=== PATIENT | male | born 1985 | race Caucasian/White ===

== ENCOUNTER 2016-11-21 07:29 | Emergency (ER) | payer OTHER ==
[2016-11-21 07:40] VITALS: BP 137/82; PULSE 54; TEMP 97.7; BMI 30.5
[2016-11-21] MEDS ORDERED: METOCLOPRAMIDE HCL INJECTION 10 MG/2 ML VIAL IVPB ONE (08:51)
[2016-11-21] MEDS ORDERED: SODIUM CHLORIDE 1,000 ML IV STA (08:51)
[2016-11-21] MEDS ORDERED: KETOROLAC TROMETHAMINE 30 MG/1 ML VIAL IVPUSH ONE (08:51)
[2016-11-21] MEDS ORDERED: PANTOPRAZOLE SODIUM 40 MG in SODIUM CHLORIDE 100 ML IVPB ONE (08:53)
[2016-11-21] MEDS ORDERED: PANTOPRAZOLE SODIUM 100 ML IVPB ONE (09:03)
[2016-11-21] MEDS ORDERED: METOCLOPRAMIDE HCL INJECTION 10 MG/2 ML VIAL ONE (09:03)
[2016-11-21] MEDS ORDERED: KETOROLAC TROMETHAMINE 30 MG/1 ML VIAL ONE (09:04)
--- NOTE | 2016-11-21 09:20 | PDOC ---
History of Present Illness - General Chief Complaint: Pain, Acute Stated Complaint: VOMITING, HEADACHE Time Seen by Provider: 11/21/16 08:42 History Source: Patient Exam Limitations: No Limitations - History of Present Illness Initial Comments: 11/21/16 09:00 31-year-old male with history of asthma and hypothyroidism presents to the ED with complaints of a sudden onset of worsening left temporal occipital throbbing pressure since yesterday afternoon. Patient states took Tylenol yesterday with moderate effect but then at 2 AM symptoms returned but more severe. Patient states has mild nausea with mild epigastric cramping/burning. Patient denies fever, chills, recent dental work, ear pain, throat pain, neck stiffness, recent travel, recent illness, change in appetite, history of drug and alcohol use. Patient denies recent fall, head injury, or history of headaches. Patient denies any visual changes or dizziness. Timing/Duration: reports: increasing Severity: Yes: moderate Associated Symptoms: reports: denies symptoms Past History - Travel Traveled outside of the country in the last 30 days: No Close contact w/someone who was outside of country & ill: No - Past Medical History Allergies/Adverse Reactions: Allergies Allergy/AdvReac Type Severity Reaction Status Date / Time aspirin Allergy Hives Verified 11/21/16 07:32 Home Medications: Ambulatory Orders Levothyroxine [Synthroid -] 112 mcg PO DAILY 07/05/13 Omeprazole [Prilosec (RX)] 20 mg PO BID #30 capsule 07/05/13 Ondansetron [Zofran -] 4 mg PO BID PRN #14 tablet 07/05/13 Asthma: Yes Thyroid Disease: Yes (hypo) - Psycho/Social/Smoking Cessation Hx Anxiety: No Suicidal Ideation: No Smoking Status: No Smoking History: Never smoked Number of Cigarettes Smoked Daily: 0 Hx Alcohol Use: Yes (OCCASIONALLY) Substance Use Type: Alcohol Patient Lives Alone: No Lives with/in: spouse/SO Review of Systems - Review of Systems Able to Perform ROS?: No Is the patient limited Mauritian proficient: No Constitutional: No: Symptoms Reported HEENTM: No: Symptoms Reported Respiratory: No: Symptoms reported Cardiac (ROS): No: Symptoms Reported ABD/GI: Yes: Nausea, Indigestion, Abdominal cramping : No: Symptoms Reported Musculoskeletal: No: Symptoms Reported Neurological: Yes: Headache. No: Tingling, Weakness, Dizziness Hematologic/Lymphatic: No: Symptoms Reported *Physical Exam - Vital Signs Last Vital Signs Temp Pulse Resp BP Pulse Ox 97.7 F 54 L 19 137/82 98 11/21/16 07:33 11/21/16 07:33 11/21/16 07:33 11/21/16 07:33 11/21/16 07:33 - Physical Exam General Appearance: Yes: Nourished, Appropriately Dressed. No: Apparent Distress HEENT: positive: EOMI, SAMANTHA. negative: Pale Conjunctivae Neck: positive: Normal Thyroid, Supple. negative: Tender, Decreased range of motion Respiratory/Chest: positive: Lungs Clear, Normal Breath Sounds. negative: Respiratory Distress, Accessory Muscle Use Cardiovascular: positive: Regular Rhythm, Regular Rate. negative: Murmur Gastrointestinal/Abdominal: positive: Normal Bowel Sounds, Soft, Tenderness ( epigastric. no right upper quadrant tenderness). negative: Distended, Guarding , Rebound Integumentary: positive: Normal Color, Warm, Moist Neurologic: positive: Motor Strength 5/5 (ambulatory) ED Treatment Course - LABORATORY CBC & Chemistry Diagram: 11/21/16 09:15 11/21/16 09:15 - RADIOLOGY Radiology Studies Ordered: Category Date Time Status HEAD CT WITHOUT CONTRAST [CT] Stat CT Scan 11/21/16 08:51 Ordered Medical Decision Making - Medical Decision Making 11/21/16 09:00 Patient complains of headache associated with nausea and epigastric pain. Patient then had no neuro focal deficits and due to patient's history of present illness patient will have blood work , IV Reglan, IV fluids, Toradol, and CAT scan ordered. Patient also ordered for Protonix. 11/21/16 10:52 Laboratory Tests 11/21/16 11/21/16 09:15 09:15 WBC 7.6 Hgb 16.1 Hct 46.3 Plt Count 155 Sodium 139 Potassium 4.1 Chloride 108 H Carbon Dioxide 24 Anion Gap 7 L BUN 10 Creat Clearance w eGFR > 60 Random Glucose 103 Calcium 8.8 AST 20 D ALT 51 D Albumin 3.[address] shows no evidence of mass, hemorrhage or acute vascular territory infarction or acute changes in the brain identified. 11/21/16 11:09 Patient states feeling better with no complaints presently including epigastric discomfort. Patient will be discharged home with recommendations to take Pepcid and to take Tylenol or Motrin for headache. Patient also be given a referral to a neurologist and states can follow-up with his 's bonus clerk Dr. Underwood. *DC/Admit/Observation/Transfer Diagnosis at time of Disposition: Epigastric pain Headache Qualifiers: Headache type: unspecified Headache chronicity pattern: acute headache Intractability: not intractable Qualified Code(s): R51 - Headache - Discharge Dispostion Disposition: HOME Condition at time of disposition: Improved - Referrals Referrals: Monica Hernadez MD [Primary Care Provider] - Fernando Deshpande MD [Staff Physician] - Cristobal Underwood MD [Staff Physician] - - Patient Instructions Printed Discharge Instructions: DI for Headache, DI for Gastroesophageal Reflux Disease (GERD) Additional Instructions: I recommend at this point taking Motrin and Tylenol gelcaps for headache control. Patient plenty of fluids and although you have not been diagnosed with GERD, I have enclosed information regards to GERD I do recommend taking Pepcid over-the- counter daily and follow-up with referred bonus clerk.
[2016-11-21 09:31] LABS: BASOPHIL 0.4 % (0-2.0); EOSINOPHIL 1.3 % (0-4.5); MCH 29.3 pg (25.7-33.7); MCHC 34.9 g/dl (32.0-35.9); MEAN CELL VOLUME 84.1 fl (80-96); MEAN PLT VOLUME 8.5 fl (7.5-11.1); NEUTROPHILS 79.1 % (42.8-82.8); PLATELET COUNT 155 K/MM3 (134-434); RDW 14.2 % (11.9-15.9); WHITE BLOOD COUNT 7.6 K/mm3 (4.0-10.0)
[2016-11-21 09:45] LABS: ALBUMIN 3.8 g/dl (3.4-5.0); ANION GAP 7 (8-16); CALCIUM 8.8 mg/dL (8.5-10.1); CO2 24 mmol/L (21-32); CREATININE 0.9 mg/dL (0.7-1.3); GLUCOSE,RANDOM 103 mg/dL (74-106); SGOT/AST 20 U/L (15-37); SGPT/ALT 51 U/L (12-78)
[2016-11-21 09:47] LABS: ALK PHOS 50 U/L (45-117); BILIRUBIN,TOTAL 0.5 mg/dL (0.2-1.0)
== END 2016-11-21 11:26 | disposition home or self-care (01) ==
LOC: JER 07:29
PROC: 3E033GC Introduction of Other Therapeutic Substance into Peripheral Vein, Percutaneous Approach (ICD-10-PCS; principal; 2016-11-21)
DX: R10.13 Epigastric pain (principal); R51 Headache; E03.9 Hypothyroidism, unspecified; J45.909 Unspecified asthma, uncomplicated
CPT/HCPCS: 36415; 70450-TC; 80053; 83690; 85025; 99282-25

== ENCOUNTER 2018-07-29 14:30 | Emergency (ER) | payer OTHER ==
[2018-07-29 14:37] VITALS: BP 119/80; BMI 25.0
--- NOTE | 2018-07-29 14:37 | PDOC ---
Rapid Medical Evaluation Time Seen by Provider: 07/29/18 14:32 Medical Evaluation: Allergies Allergy/AdvReac Type Severity Reaction Status Date / Time aspirin Allergy Hives Verified 11/21/16 07:32 07/29/18 14:32 I have performed a brief in-person evaluation of this patient. The patient presents with a chief complaint of: hx of hypothyroid and feels sweaty and fatigue as well as belly pain x1 day but has been on and off x2 months Pertinent physical exam findings:NAD no gross deficits I have ordered the following:TSH cardiac work up The patient will proceed to the ED for further evaluation. Discharge Disposition - Diagnosis Fatigue - Referrals - Patient Instructions - Post Discharge Activity
[2018-07-29 15:26] LABS: BASO % 0.6 % (0-2.0); EOS % 1.6 % (0-4.5); HEMATOCRIT 45.6 % (35.4-49); HEMOGLOBIN 15.5 GM/dL (11.7-16.9); LYMPH % 21.8 % (8-40); MCH 28.9 pg (25.7-33.7); MEAN CELL VOLUME 85.1 fl (80-96); MEAN PLT VOLUME 8.8 fl (7.5-11.1); MONO % 5.7 % (3.8-10.2); NEUT % 70.3 % (42.8-82.8); PLATELET COUNT 171 K/MM3 (134-434); RBC 5.36 M/mm3 (4.00-5.60); RDW 14.3 % (11.9-15.9); WHITE BLOOD COUNT 6.4 K/mm3 (4.0-10.0)
[2018-07-29 15:35] LABS: INR 1.06 (0.83-1.09); PROTHROMBIN TIME (PATIENT) 12.5 SEC (9.7-13.0)
--- NOTE | 2018-07-29 15:45 | PDOC ---
History of Present Illness - General Chief Complaint: Weakness Stated Complaint: WEAKNESS Time Seen by Provider: 07/29/18 14:32 History Source: Patient - History of Present Illness Timing/Duration: other Severity: severe Past History - Past Medical History Allergies/Adverse Reactions: Allergies Allergy/AdvReac Type Severity Reaction Status Date / Time aspirin Allergy Hives Verified 07/29/18 14:33 Home Medications: Ambulatory Orders Levothyroxine [Synthroid -] 150 mcg PO DAILY 07/29/18 Asthma: Yes COPD: No Thyroid Disease: Yes (hypo) - Immunization History Immunization Up to Date: Yes - Suicide/Smoking/Psychosocial Hx Smoking Status: No Smoking History: Never smoked Number of Cigarettes Smoked Daily: 0 Hx Alcohol Use: No Drug/Substance Use Hx: No Substance Use Type: Alcohol Review of Systems - Review of Systems Constitutional: Yes: Weakness. No: Chills, Fever Respiratory: No: Shortness of Breath Cardiac (ROS): Yes: Palpitations. No: Chest Pain, Lightheadedness, Syncope ABD/GI: No: Constipated, Diarrhea, Nausea, Vomiting, Abdominal cramping : No: Dysuria Neurological: No: Headache, Dizziness Endocrine: Yes: Excessive Sweating. No: Intolerance to Cold *Physical Exam - Vital Signs Last Vital Signs Temp Pulse Resp BP Pulse Ox 98.1 F 56 L 17 119/80 97 07/29/18 14:33 07/29/18 14:33 07/29/18 14:33 07/29/18 14:33 07/29/18 14:33 - Physical Exam General Appearance: Yes: Appropriately Dressed. No: Apparent Distress HEENT: positive: Normal Voice Neck: positive: Supple Respiratory/Chest: positive: Lungs Clear, Normal Breath Sounds. negative: Respiratory Distress Cardiovascular: positive: Regular Rate, S1, S2 Gastrointestinal/Abdominal: positive: Soft. negative: Tender Integumentary: positive: Dry, Warm Neurologic: positive: Fully Oriented, Alert, Normal Mood/Affect ED Treatment Course - LABORATORY CBC & Chemistry Diagram: 07/29/18 15:11 07/29/18 15:11 - ADDITIONAL ORDERS Additional order review: Laboratory Results 07/29/18 15:11 PT with INR 12.50 INR 1.06 07/29/18 15:11 RBC 5.36 MCV 85.1 MCHC 34.0 RDW 14.3 MPV 8.8 Neutrophils % 70.3 Lymphocytes % 21.8 D Monocytes % 5.7 Eosinophils % 1.6 Basophils % 0.6 Medical Decision Making - Medical Decision Making 07/29/18 15:42 33 yo male, h/o asthma, alopecia, hypothyroid on levothyroxine, but has been lost to endocrine f/u 05/30 no insurance, here w/ worsening of chronic symptoms. Pt states for the past several months, he has had intermittent fatigue and palpitations and today while at work felt so fatigued that "I couldn't function ". Also c/o diaphoresis. No SOB, CP, cold intolerance or constipation. Reports he now has insurance and has follow-up with a Dr. 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 Pt remains well emmy here. Will dc to f/u next week as already scheduled 07/29/18 17:39 *DC/Admit/Observation/Transfer Diagnosis at time of Disposition: Fatigue Qualifiers: Fatigue type: unspecified Qualified Code(s): R53.83 - Other fatigue - Discharge Dispostion Disposition: HOME Condition at time of disposition: Good - Referrals Referrals: Yue Vazquez MD [Primary Care Provider] - - Patient Instructions Additional Instructions: Your labs were normal today including TSH which was 0.72 and free T4 of 1.16 Please follow-up with Dr. Vazquez next week as already scheduled. Please return to ER for worsening of symptoms as discussed today - Post Discharge Activity Forms/Work/School Notes: Back to Work
[2018-07-29 15:52] LABS: ALBUMIN 4.1 g/dl (3.4-5.0); ALK PHOS 57 U/L (45-117); ANION GAP 7 MMOL/L (8-16); BILIRUBIN,TOTAL 0.5 mg/dL (0.2-1); BLOOD UREA NITROGEN 11 mg/dL (7-18); CALCIUM 9.3 mg/dL (8.5-10.1); CHLORIDE 106 mmol/L (98-107); CO2 27 mmol/L (21-32); CREATININE 0.9 mg/dL (0.55-1.3); GLUCOSE,RANDOM 89 mg/dL (74-106); MAGNESIUM 2.3 mg/dL (1.8-2.4); POTASSIUM 4.4 mmol/L (3.5-5.1); SGOT/AST 12 U/L (15-37); SGPT/ALT 31 U/L (13-61); SODIUM 139 mmol/L (136-145); TOT PROT 7.3 g/dl (6.4-8.2)
[2018-07-29 16:40] VITALS: PULSE 57; TEMP 98.7
--- NOTE | 2018-07-30 11:49 | EKG ---
Test Reason : Blood Pressure : / mmHG Vent. Rate : 050 BPM Atrial Rate : 050 BPM P-R Int : 132 ms QRS Dur : 096 ms QT Int : 394 ms P-R-T Axes : 052 083 069 degrees QTc Int : 359 ms SINUS BRADYCARDIA OTHERWISE NORMAL ECG NO PREVIOUS ECGS AVAILABLE Confirmed by LORENZO EDMONDS MD ([id number]) on 07/30/2018 11:48:41 AM Referred By: Confirmed By:LORENZO EDMONDS MD
== END 2018-07-29 17:39 | disposition home or self-care (01) ==
LOC: JER 14:30
DX: R53.83 Other fatigue (principal); J45.909 Unspecified asthma, uncomplicated; L65.9 Nonscarring hair loss, unspecified; E03.9 Hypothyroidism, unspecified
CPT/HCPCS: 36415; 71046-TC-FY; 80053; 82550; 83735; 84439; 84443; 84484; 85025; 85610; 93005; 93010; 99284-25

== ENCOUNTER 2019-01-11 12:49 | Emergency (ER) | payer SELFPAY ==
[2019-01-11 12:59] VITALS: BMI 28.1
--- NOTE | 2019-01-11 14:27 | PDOC ---
History of Present Illness - General Chief Complaint: Pain Stated Complaint: FEVER/DIARRHEA/ABD PAIN/HEADACHE Time Seen by Provider: 01/11/19 14:06 History Source: Patient Exam Limitations: No Limitations Past History - Travel Traveled outside of the country in the last 30 days: No Close contact w/someone who was outside of country & ill: No - Past Medical History Allergies/Adverse Reactions: Allergies Allergy/AdvReac Type Severity Reaction Status Date / Time aspirin Allergy Hives Verified 01/11/19 13:00 Home Medications: Ambulatory Orders Levothyroxine [Synthroid -] 150 mcg PO DAILY 07/29/18 Albuterol Sulfate Inhaler - [Ventolin Hfa Inhaler -] 1 - 2 inh PO QID 01/11/19 Cyclobenzaprine HCl [Flexeril -] 10 mg PO HS #10 tablet 01/11/19 Ondansetron [Zofran Odt -] 4 mg SL TID #10 od.tablet 01/11/19 Asthma: Yes COPD: No Thyroid Disease: Yes (hypo) - Immunization History Immunization Up to Date: Yes - Suicide/Smoking/Psychosocial Hx Smoking Status: No Smoking History: Never smoked Have you smoked in the past 12 months: No Number of Cigarettes Smoked Daily: 0 Information on smoking cessation initiated: No Hx Alcohol Use: No Drug/Substance Use Hx: No Substance Use Type: Alcohol Review of Systems - Review of Systems Able to Perform ROS?: Yes Comments:: 01/11/19 19:10 CONSTITUTIONAL: Present: fever, generalized weakness Absent: chills, diaphoresis, malaise, loss of appetite HEENT: Absent: rhinorrhea, nasal congestion, throat pain, throat swelling, difficulty swallowing, mouth swelling, ear pain, eye pain, visual Changes CARDIOVASCULAR: Absent: chest pain, loss of consciousness, palpitations, irregular heart rate, peripheral edema RESPIRATORY: Absent: cough, shortness of breath, dyspnea with exertion, orthopnea, wheezing, stridor, hemoptysis GASTROINTESTINAL: Present: abdominal pain, n/v/d Absent: abdominal distension, constipation, melena, hematochezia GENITOURINARY: Absent: dysuria, frequency, urgency, hesitancy, hematuria, flank pain, genital pain MUSCULOSKELETAL: Absent: myalgia, arthralgia, joint swelling SKIN: Absent: rash, itching, pallor HEMATOLOGIC/IMMUNOLOGIC: Absent: easy bleeding, easy bruising, lymphadenopathy, frequent infections ENDOCRINE: Absent: unexplained weight gain, unexplained weight loss, heat intolerance, cold intolerance NEUROLOGIC: Absent: headache, focal weakness or paresthesias, dizziness, unsteady gait, seizure, mental status changes, bladder or bowel incontinence PSYCHIATRIC: Absent: anxiety, depression, suicidal or homicidal ideation, hallucinations. Is the patient limited Salvadorean proficient: No *Physical Exam - Vital Signs Last Vital Signs Temp Pulse Resp BP Pulse Ox 103.0 F H 117 H 23 H 125/84 99 01/11/19 12:57 01/11/19 12:57 01/11/19 12:57 01/11/19 12:57 01/11/19 12:57 - Physical Exam Comments: 01/11/19 19:12 GENERAL: Well developed, well nourished. Awake and alert. Moderate distress, febrile. HEENT: Normocephalic, atraumatic. PERRLA, EOMI. No conjunctival pallor. Sclera are non- icteric. Moist mucous membranes. Oropharynx is clear. NECK: Supple. Full ROM. No JVD. Carotid pulses 2+ and symmetric, without bruits. No thyromegaly. No lymphadenopathy. CARDIOVASCULAR: Regular rate and rhythm. No murmurs, rubs, or gallops. Distal pulses are 2+ and symmetric. PULMONARY: No evidence of respiratory distress. Lungs clear to auscultation bilaterally. No wheezing, rales or rhonchi. ABDOMINAL: TTP of the RLQ, suprapubic area without rebound or guarding. Soft. Non- distended. No rebound or guarding. No organomegaly. Normoactive bowel sounds. MUSCULOSKELETAL Normal range of motion at all joints. No bony deformities or tenderness. No CVA tenderness. EXTREMITIES: No cyanosis. No clubbing. No edema. No calf tenderness. SKIN: Warm and dry. Normal capillary refill. No rashes. No jaundice. NEUROLOGICAL: Alert, awake, appropriate. Cranial nerves 2-12 intact. No deficits to light touch and temperature in face, upper extremities and lower extremities. No motor deficits in the in face, upper extremities and lower extremities. Normoreflexic in the upper and lower extremities. Normal speech. Toes are down- going bilaterally. Gait is normal without ataxia. PSYCHIATRIC: Cooperative. Good eye contact. Appropriate mood and affect. ED Treatment Course - LABORATORY CBC & Chemistry Diagram: 01/11/19 14:59 01/11/19 14:59 Medical Decision Making - Medical Decision Making 01/11/19 19:16 he patient is a 33-year-old male with past medical history of herniated disks, presents to the ER today with 3 days of nausea, vomiting, abdominal pain, diarrhea and fever. 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 He notes that he has diffuse abdominal pain.He states that he has been unable to urinate because he has not been drinking. He is tried taking Tylenol at home with little relief of his fever.Denies shortness of breath, difficulty breathing, chest pain,urinary symptoms.Patient did admit to an associated cough so he tried taking a Z-Frankie. He is on day 2 of treatment. A/P: Abdominal pain, fever Patient febrile to 103 with lower abdominal pain on exam. Patient also with right lower back pain; palpable spasm noted Labs, IVF and IV meds, CTAP ordered d/t pain WBC of 18.9 with L shift; urine negative CTAP shows no acute pathology; likely a diarrheal illness Will give toradol and fluids at this time and re-evaluate Sign out given to EMERGENCY ROOM SPECIALIST Steve Anticipate DC home *DC/Admit/Observation/Transfer Diagnosis at time of Disposition: Gastroenteritis, Back pain - Discharge Dispostion Disposition: HOME Condition at time of disposition: Stable Decision to Admit order: No - Prescriptions Prescriptions: Cyclobenzaprine HCl [Flexeril -] 10 mg PO HS #10 tablet Ondansetron [Zofran Odt -] 4 mg SL TID #10 od.tablet - Referrals Referrals: Kalyani Katz MD [Primary Care Provider] - Warren Maxwell MD [Staff Physician] - - Patient Instructions Printed Discharge Instructions: DI for Viral Gastroenteritis -- Adult Additional Instructions: You have diarrhea, vomiting and abdominal pain Take the medications as prescribed to help with your nausea and fever and back spasm. Follow the dosing instructions for Tylenol according to the pharmacovigilance scientist Take a stool sample and give it to your primary care doctor for further evaluation Avoid all dairy products until 48 hours after the vomiting/diarrhea has resolved. Eat a bland diet including apple sauce, toast, bananas, and plain rice Drink plenty of fluids including pedialyte, watered down juices and water Follow up with your primary care doctor this week Return to the ED if you develop fevers, abdominal pain, worsening vomiting, or if you have any changes in your symptoms. - Post Discharge Activity Forms/Work/School Notes: Back to Work
[2019-01-11] MEDS ORDERED: ACETAMINOPHEN 1000 MG/100 ML VIAL (NON FORMULARY) IVPB ONE (14:28)
[2019-01-11] MEDS ORDERED: SODIUM CHLORIDE 1,000 ML IV STA ×3 (14:28→18:06)
[2019-01-11] MEDS ORDERED: ONDANSETRON 4 MG/2 ML VIAL IVPUSH ONE (14:28)
--- NOTE | 2019-01-11 14:28 | EKG ---
Test Reason : Blood Pressure : / mmHG Vent. Rate : 116 BPM Atrial Rate : 116 BPM P-R Int : 124 ms QRS Dur : 092 ms QT Int : 302 ms P-R-T Axes : 047 079 054 degrees QTc Int : 419 ms SINUS TACHYCARDIA POSSIBLE LEFT ATRIAL ENLARGEMENT BORDERLINE ECG WHEN COMPARED WITH ECG OF 29-JUL-2018 15:08, VENT. RATE HAS INCREASED BY 66 BPM Confirmed by PERRY REA MD ([id number]) on 01/11/2019 2:28:14 PM Referred By: Confirmed By:PERRY REA MD
[2019-01-11] MEDS ORDERED: ONDANSETRON 4 MG/2 ML VIAL ONE (14:37)
[2019-01-11] MEDS ORDERED: ACETAMINOPHEN INJECTION 100 ML IVPB ONE ×2 (14:37→14:53)
[2019-01-11 15:09] LABS: BASO % 0.6 % (0-2.0); EOS % 0.2 % (0-4.5); HEMATOCRIT 43.8 % (35.4-49); HEMOGLOBIN 15.2 GM/dL (11.7-16.9); LYMPH % 4.7 % (8-40); MCH 29.1 pg (25.7-33.7); MCHC 34.7 g/dl (32.0-35.9); MEAN CELL VOLUME 83.9 fl (80-96); MONO % 2.3 % (3.8-10.2); NEUT % 92.2 % (42.8-82.8); PLATELET COUNT 209 K/MM3 (134-434); RBC 5.22 M/mm3 (4.00-5.60); RDW 14.2 % (11.9-15.9); WHITE BLOOD COUNT 18.2 K/mm3 (4.0-10.0)
[2019-01-11 15:26] LABS: INR 1.57 (0.83-1.09); PROTHROMBIN TIME (PATIENT) 18.6 SEC (9.7-13.0)
[2019-01-11 15:37] LABS: ALBUMIN 3.6 g/dl (3.4-5.0); BILIRUBIN,TOTAL 1.4 mg/dL (0.2-1); BLOOD UREA NITROGEN 9.5 mg/dL (7-18); CALCIUM 9.3 mg/dL (8.5-10.1); CREATININE 1.2 mg/dL (0.55-1.3); POTASSIUM 4.2 mmol/L (3.5-5.1); TOT PROT 7.4 g/dl (6.4-8.2)
[2019-01-11] MEDS ORDERED: morphine CARPU-JECT 4 MG/1 ML DISP.SYRIN IVPUSH ONE (15:39)
[2019-01-11] MEDS ORDERED: METOCLOPRAMIDE HCL INJECTION 10 MG/2 ML VIAL IVPB ONE (15:39)
[2019-01-11] MEDS ORDERED: METOCLOPRAMIDE HCL INJECTION 10 MG/2 ML VIAL ONE (16:00)
[2019-01-11] MEDS ORDERED: morphine SULFATE 4 MG/ML VIAL ONE (16:00)
[2019-01-11 17:29] LABS: URINE APPEARANCE CLEAR; URINE BILIRUBIN NEGATIVE (NEGATIVE); URINE COLOR YELLOW; URINE GLUCOSE (UA) NEGATIVE (NEGATIVE); URINE KETONE NEGATIVE (NEGATIVE); URINE LEUK ESTERASE NEGATIVE (NEGATIVE); URINE NITRITE NEGATIVE (NEGATIVE); URINE PROTEIN NEGATIVE (NEGATIVE); URINE UROBILINOGEN 0.2 mg/dL (0.2-1.0)
[2019-01-11] MEDS ORDERED: KETOROLAC TROMETHAMINE 30 MG/1 ML VIAL IVPUSH ONE (18:06)
[2019-01-11] MEDS ORDERED: CYCLOBENZAPRINE HCL 10 MG TABLET (FP) PO ONE (18:15)
[2019-01-11 18:51] LABS: ANISOCYTOSIS 0; MACROCYTOSIS 0; PLATELET ESTIMATE NORMAL
[2019-01-11] MEDS ORDERED: CYCLOBENZAPRINE HCL 10 MG TABLET (FP) ONE (19:24)
[2019-01-11] MEDS ORDERED: KETOROLAC TROMETHAMINE 30 MG/1 ML VIAL ONE (19:25)
--- NOTE | 2019-01-11 19:46 | PDOC ---
*Physical Exam - Vital Signs Last Vital Signs Temp Pulse Resp BP Pulse Ox 103.0 F H 117 H 23 H 125/84 99 01/11/19 12:57 01/11/19 12:57 01/11/19 12:57 01/11/19 12:57 01/11/19 12:57 - Physical Exam General Appearance: Yes: Appropriately Dressed ED Treatment Course - LABORATORY CBC & Chemistry Diagram: 01/11/19 14:59 01/11/19 14:59 - ADDITIONAL ORDERS Additional order review: Laboratory Results 01/11/19 01/11/19 01/11/19 17:18 14:59 14:54 PT with INR 18.60 H INR 1.57 H Sodium 133 L Potassium 4.2 Chloride 98 Carbon Dioxide 23 Anion Gap 12 BUN 9.5 Creatinine 1.2 Est GFR (CKD-EPI)AfAm 92.18 Est GFR (CKD-EPI)NonAf 79.53 Random Glucose 122 H Calcium 9.3 Total Bilirubin 1.4 H AST 21 ALT 20 Alkaline Phosphatase 68 Total Protein 7.4 Albumin 3.6 Urine Color Yellow Urine Appearance Clear Urine pH 7.0 Ur Specific Monitor 1.032 Urine Protein Negative Urine Glucose (UA) Negative Urine Ketones Negative Urine Blood Negative Urine Nitrite Negative Urine Bilirubin Negative Urine Urobilinogen 0.2 Ur Leukocyte Esterase Negative 01/11/19 14:59 RBC 5.22 MCV 83.9 MCHC 34.7 RDW 14.2 MPV 9.0 Neutrophils % 92.2 H D Lymphocytes % 4.7 L D Monocytes % 2.3 L Eosinophils % 0.2 D Basophils % 0.6 - Medications Given in the ED: ED Medications Discontinued Medications Generic Name Dose Route Start Last Admin Trade Name Mickie PRN Reason Stop Dose Admin Acetaminophen 1,000 mg 01/11/19 14:28 01/11/19 14:56 Ofirmev Injection - IVPB 01/11/19 14:29 1,000 mg ONCE ONE Administration Cyclobenzaprine HCl 10 mg 01/11/19 18:15 01/11/19 19:31 Flexeril - PO 01/11/19 18:16 10 mg ONCE ONE Administration Diphenhydramine HCl 12.5 mg 01/11/19 15:39 01/11/19 16:10 Benadryl Injection - IVPB 01/11/19 15:40 12.5 mg ONCE ONE Administration Sodium Chloride 1,000 mls @ 1,000 mls/hr 01/11/19 14:28 01/11/19 14:56 Normal Saline - IV 01/11/19 15:27 1,000 mls/hr ASDIR STA Administration Sodium Chloride 1,000 mls @ 1,000 mls/hr 01/11/19 15:39 01/11/19 16:11 Normal Saline - IV 01/11/19 16:38 1,000 mls/hr ASDIR STA Administration Sodium Chloride 1,000 mls @ 1,000 mls/hr 01/11/19 18:06 01/11/19 19:30 Normal Saline - IV 01/11/19 19:05 1,000 mls/hr ASDIR STA Administration Ketorolac Tromethamine 30 mg 01/11/19 18:06 01/11/19 19:31 Toradol Injection - IVPUSH 01/11/19 18:07 30 mg ONCE ONE Administration Metoclopramide HCl 10 mg 01/11/19 15:39 01/11/19 16:12 Reglan Injection - IVPB 01/11/19 15:40 10 mg ONCE ONE Administration Morphine Sulfate 4 mg 01/11/19 15:39 01/11/19 16:10 Morphine Injection - IVPUSH 01/11/19 15:40 4 mg ONCE ONE Administration Ondansetron HCl 4 mg 01/11/19 14:28 01/11/19 14:56 Zofran Injection IVPUSH 01/11/19 14:29 4 mg ONCE ONE Administration Medical Decision Making - Medical Decision Making 01/11/19 19:45 patient tolerated PO soup. reports feeling better. no diarrhea since arrival to the ED. strict return precautions given. 01/11/19 20:43 patient v/s stable. will d/.c home. patient is following up with pcp tomorrow *DC/Admit/Observation/Transfer Diagnosis at time of Disposition: Gastroenteritis Back pain Qualifiers: Back pain location: low back pain Chronicity: acute Back pain laterality: unspecified Sciatica presence: without sciatica Qualified Code(s): M54.5 - Low back pain - Discharge Dispostion Disposition: HOME Condition at time of disposition: Stable - Prescriptions Prescriptions: Cyclobenzaprine HCl [Flexeril -] 10 mg PO HS #10 tablet Ondansetron [Zofran Odt -] 4 mg SL TID #10 od.tablet - Referrals Referrals: Kalyani Katz MD [Primary Care Provider] - Warren Maxwell MD [Staff Physician] - - Patient Instructions Printed Discharge Instructions: DI for Viral Gastroenteritis -- Adult Additional Instructions: You have diarrhea, vomiting and abdominal pain Take the medications as prescribed to help with your nausea and fever and back spasm. Follow the dosing instructions for Tylenol according to the bladder trimmer Take a stool sample and give it to your primary care doctor for further evaluation Avoid all dairy products until 48 hours after the vomiting/diarrhea has resolved. Eat a bland diet including apple sauce, toast, bananas, and plain rice Drink plenty of fluids including pedialyte, watered down juices and water Follow up with your primary care doctor this week Return to the ED if you develop fevers, abdominal pain, worsening vomiting, or if you have any changes in your symptoms. - Post Discharge Activity Forms/Work/School Notes: Back to Work
[2019-01-11] MEDS ORDERED: IBUPROFEN 600 MG TABLET (FP) PO ONE (20:19)
[2019-01-11 20:41] VITALS: BP 137/74; PULSE 100; TEMP 99
== END 2019-01-11 20:46 | disposition home or self-care (01) ==
LOC: JER 12:49
PROC: 3E033NZ Introduction of Analgesics, Hypnotics, Sedatives into Peripheral Vein, Percutaneous Approach (ICD-10-PCS; principal; 2019-01-11)
PROC: 3E0333Z Introduction of Anti-inflammatory into Peripheral Vein, Percutaneous Approach (ICD-10-PCS; 2019-01-11)
PROC: 3E033GC Introduction of Other Therapeutic Substance into Peripheral Vein, Percutaneous Approach (ICD-10-PCS; 2019-01-11)
PROC: 3E033GC Introduction of Other Therapeutic Substance into Peripheral Vein, Percutaneous Approach (ICD-10-PCS; 2019-01-11)
PROC: 3E033NZ Introduction of Analgesics, Hypnotics, Sedatives into Peripheral Vein, Percutaneous Approach (ICD-10-PCS; 2019-01-11)
PROC: 3E033GC Introduction of Other Therapeutic Substance into Peripheral Vein, Percutaneous Approach (ICD-10-PCS; 2019-01-11)
PROC: 3E0337Z Introduction of Electrolytic and Water Balance Substance into Peripheral Vein, Percutaneous Approach (ICD-10-PCS; 2019-01-11)
DX: K52.9 Noninfective gastroenteritis and colitis, unspecified (principal); E03.8 Other specified hypothyroidism; J45.909 Unspecified asthma, uncomplicated
CPT/HCPCS: 36415; 71046-TC-FY; 74177-TC; 80053; 81003; 85025; 85610; 87086; 87804; 93005; 93010; 99285-25; J0131; J7030

== ENCOUNTER → 2020-07-11 | Day surgery (SDC) | payer OTHER | END | disposition home or self-care (01) | LOC: JRADIR 10:40 | PROVIDERS: ATTEND Internal Medicine | PROC: 0G9K3ZX Drainage of Thyroid Gland, Percutaneous Approach, Diagnostic (ICD-10-PCS; principal; 2020-07-11) | DX: E04.1 Nontoxic single thyroid nodule (principal) | CPT/HCPCS: 10005; 76942 ==

== ENCOUNTER 2023-12-25 03:42 | Emergency (ER) | payer BC, OTHER ==
[2023-12-25 03:54] VITALS: BMI 29.7
[2023-12-25] MEDS ORDERED: ACETAMINOPHEN INJECTION 100 ML ONE (04:30)
[2023-12-25] MEDS ORDERED: FAMOTIDINE 20 MG/50 ML IVPB 20 MG/50 ML MG IVPB ONE (04:31)
[2023-12-25] MEDS ORDERED: MAG HYDROX/AL HYDROX/SIMETH 30 ML UNIT-DOSE CUP ONE (04:31)
[2023-12-25] MEDS ORDERED: ONDANSETRON 4 MG/2 ML VIAL ONE (04:31)
[2023-12-25] MEDS: MAG HYDROX/AL HYDROX/SIMETH 30 ML UNIT-DOSE CUP PO ONE (04:48)
[2023-12-25] MEDS: FAMOTIDINE 20 MG/50 ML IVPB 20 MG/50 ML MG IVPB ONE (04:48)
[2023-12-25] MEDS: SODIUM CHLORIDE 1,000 ML IV STA (04:48)
[2023-12-25] MEDS: ACETAMINOPHEN 1000 MG/100 ML BAG IVPB ONE (04:48)
[2023-12-25] MEDS: ONDANSETRON 4 MG/2 ML VIAL IVPUSH ONE (04:49)
[2023-12-25 04:55] LABS: BASO % 0.5 % (0-2.0); EOS % 0.7 % (0-4.5); HEMATOCRIT 48.5 % (35.4-49); HEMOGLOBIN 17.1 GM/dL (11.7-16.9); LYMPH % 15.1 % (8-40); MCHC 35.3 g/dl (32.0-35.9); MEAN PLT VOLUME 8.7 fl (7.5-11.1); MONO % 2.3 % (3.8-10.2); NEUT % 81.4 % (42.8-82.8); PLATELET COUNT 234 10^3/uL (134-434); RDW 14.3 % (11.9-15.9); WHITE BLOOD COUNT 8.7 K/mm3 (4.0-10.0)
[2023-12-25] MEDS ORDERED: morphine SULFATE 4 MG/ML VIAL ONE (05:23)
[2023-12-25] MEDS: morphine CARPU-JECT 4 MG/1 ML DISP.SYRIN IVPUSH ONE (05:29)
[2023-12-25 05:54] LABS: POTASSIUM 4.6 mmol/L (3.5-5.1)
[2023-12-25 05:56] LABS: ALBUMIN 4.3 g/dl (3.4-5.0); BLOOD UREA NITROGEN 14.5 mg/dL (7-18); CALCIUM 9.6 mg/dL (8.5-10.1)
[2023-12-25 05:59] LABS: CREATININE 1.2 mg/dL (0.55-1.3)
[2023-12-25 06:01] LABS: BILIRUBIN,TOTAL 0.7 mg/dL (0.2-1); TOT PROT 7.9 g/dl (6.4-8.2)
[2023-12-25] MEDS ORDERED: METOCLOPRAMIDE HCL INJECTION 10 MG/2 ML VIAL ONE (06:46)
[2023-12-25] MEDS: METOCLOPRAMIDE HCL INJECTION 10 MG/2 ML VIAL IVPUSH ONE (06:51)
[2023-12-25 09:01] VITALS: BP 139/79; PULSE 68; RESP 16; TEMP 98
== END 2023-12-25 11:31 | disposition home or self-care (01) ==
LOC: JER 03:42
PROC: 3E033GC Introduction of Other Therapeutic Substance into Peripheral Vein, Percutaneous Approach (ICD-10-PCS; principal; 2023-12-25)
PROC: 3E033NZ Introduction of Analgesics, Hypnotics, Sedatives into Peripheral Vein, Percutaneous Approach (ICD-10-PCS; 2023-12-25)
PROC: 3E033GC Introduction of Other Therapeutic Substance into Peripheral Vein, Percutaneous Approach (ICD-10-PCS; 2023-12-25)
PROC: 3E033NZ Introduction of Analgesics, Hypnotics, Sedatives into Peripheral Vein, Percutaneous Approach (ICD-10-PCS; 2023-12-25)
PROC: 3E033GC Introduction of Other Therapeutic Substance into Peripheral Vein, Percutaneous Approach (ICD-10-PCS; 2023-12-25)
DX: R11.2 Nausea with vomiting, unspecified (principal); R10.13 Epigastric pain
CPT/HCPCS: 36415; 80053; 83690; 83735; 84443; 85025; 99284-25; J0131